=== PATIENT | female | born 1965 | race Two or more races ===

== ENCOUNTER → 2019-12-27 08:00 | Outpatient (CLI) | payer OTHER, SELFPAY ==
--- NOTE | ~2019-12-27 | US_ITS ---
EXAMINATION: US abdomen limited DATE: 12/27/2019 08:48 INDICATION: Other specified abnormal findings of blood chemistry. Abnormal liver function tests. TECHNIQUE: Multiple grayscale and Doppler ultrasound images of the abdomen were obtained. COMPARISON: CT abdomen and pelvis 10/02/2004 FINDINGS: Abdominal aorta is normal in caliber. Inferior vena cava is normal. The visualized portions of the head and body of the pancreas are normal. The liver is normal without focal lesion. There is normal flow in main portal vein. The gallbladder is normal in size. No gallstones or gallbladder wall thickening. There was no sonographic Levine sign. The common duct is normal and measures 4 mm. IMPRESSION: 1. Normal right upper quadrant ultrasound. Reviewed, dictated and finalized at location B. [employer]
== END ==
PROVIDERS: PCP Family Medicine; Visit Provider Family Medicine
DX: R79.89 Other specified abnormal findings of blood chemistry (principal)
CPT/HCPCS: 76705

== ENCOUNTER 2020-01-28 06:57 | Outpatient (NON) | payer OTHER, SELFPAY ==
[2020-01-28 11:19] LABS: Influenza Control Positive
== END 2020-01-28 06:58 ==
PROVIDERS: PCP Family Medicine; Visit Provider Family Medicine
DX: R05 Cough (principal); R50.9 Fever, unspecified; R51.9 Headache, unspecified
CPT/HCPCS: 87804

== ENCOUNTER 2022-08-19 09:50 | Outpatient (CLI) | payer OTHER, SELFPAY ==
--- NOTE | ~2022-08-19 | XR_ITS ---
Cervical Spine: AP, lateral, open-mouth views Clinical History: Pain Findings: The normal lordotic curve is maintained. No fracture seen. There is minimal grade 1 retroli sthesis of C5 over C6.. There is moderate degenerative disc narrowing at C5-C6. Mild degenerative dis c narrowing at C6-C7 noted. Pre-vertebral soft tissues are unremarkable. Impression: Minimal grade 1 retrolisthesis of C5 over C6, with moderate degenerative disc narrowing at this level . Mild degenerative disc changes C6-C7. Reviewed, dictated and finalized at location . Impression: Minimal grade 1 retrolisthesis of C5 over C6, with moderate degenerative disc n arrowing at this level. Mild degenerative disc changes C6-C7.
== END 2022-08-19 09:51 ==
PROVIDERS: PCP Family Medicine; Visit Provider Family Medicine
DX: M54.2 Cervicalgia (principal)
CPT/HCPCS: 72040

== ENCOUNTER 2023-07-24 16:22 | Outpatient (CLI) | payer OTHER, SELFPAY ==
--- NOTE | ~2023-07-24 | XR_ITS ---
Left Hand Technique: PA and lateral views were obtained. Clinical History: Arthralgia Findings: No acute fracture or dislocation is seen. Osseous alignment is anatomic. Joint spaces are p reserved. Soft tissues are unremarkable. Impression: Unremarkable left hand. Reviewed, dictated and finalized at location M. Impression: Unremarkable left hand.
== END 2023-07-24 16:23 ==
PROVIDERS: PCP Physician Assistant; Visit Provider Physician Assistant
DX: M25.50 Pain in unspecified joint (principal)
CPT/HCPCS: 73120